=== PATIENT | female | born 1955 | race African-American/Black ===

== ENCOUNTER 2025-04-30 16:09 | Emergency (ER) | payer MEDICARE, BC ==
[~2025-04-30] VITALS: Ht 165.1 cm; Wt 77.1 kg
[2025-04-30 16:11] VITALS: BP 157/94; O2SAT 98
== END 2025-04-30 17:51 | disposition left against medical advice (07) ==
LOC: ER 16:09
DX: I10 Essential (primary) hypertension (principal); Z53.21 Procedure and treatment not carried out due to patient leaving prior to being seen by health care provider
CPT/HCPCS: A4606; A4663